=== PATIENT | male | born 1945 | race African-American/Black ===

== ENCOUNTER 2018-09-13 12:00 | Day surgery (SDC) | payer BC ==
[~2018-09-13] VITALS: Ht 182.9 cm; Wt 137.7 kg
--- NOTE | 2018-09-13 13:34 | PREAC ---
Date/Time of Note Date/Time of Note DATE: 09/13/18 TIME: 13:33 Anesthesia Eval and Record Evaluation Time Pre-Procedure Interview DATE: 09/13/18 TIME: 13:33 Age 72 Sex male NPO: 8 hrs Preoperative diagnosis screening Planned procedure colonoscopy Past Medical History Past Medical History: Includes Cardio: HTN Renal: BPH GI: Obesity Surgery & Anesthesia Issues No known issue Meds Anticoagulation: No Beta [place] within 24 hr: No Reason Beta [place] not given: Pt. not on B-[place] Meds reviewed: Yes Allergies Allergies Reviewed: Yes Labs/Studies Labs Reviewed: Reviewed by anesthesiologist test: N/A Pre-procedure Exam Airway: Adequate mouth opening, Adequate thyromental dist Mallampati: Mallampati IV Teeth: Normal Lung: Normal Heart: Normal ASA Physical Status ASA physical status: 2 Emergency: None Pre-operative Attestations Prior to commencing anesthesia and surgery, the patient was re-evaluated, there was verification of: *The patient's identity *The results of appropriate recent lab work and preoperative vital signs *The above evaluation not changing prior to induction *Anesthetic plan, risk benefits, alternative and complications discussed with patient/family; questions answered; patient/family understands, accepts and wishes to proceed. DIETER VALENZUELA DO Sep 13, 2018 13:34
[2018-09-13] MEDS ORDERED: PROPOFOL 20 ML ONE (13:35)
[2018-09-13] MEDS ORDERED: FENTAnyl 50 MCG/ML VIAL ONE (13:35)
[2018-09-13] MEDS ORDERED: LIDOCAINE 2% (SDV) 5 ML INJ ONE (13:35)
[2018-09-13] MEDS ORDERED: MIDAZOLAM 1 MG/ML 2 ML INJ ONE (13:35)
[2018-09-13] MEDS ORDERED: COREG (13:37)
[2018-09-13] MEDS ORDERED: LISINOPRIL (13:37)
[2018-09-13] MEDS ORDERED: TAMSULOSIN (13:37)
[2018-09-13] MEDS ORDERED: ASPIRIN (13:37)
[2018-09-13 13:41] VITALS: BP 141/84; PULSE 85; RESP 12
--- NOTE | 2018-09-13 14:26 | PAC ---
Date/Time of Note Date/Time of Note DATE: 09/13/18 TIME: 14:25 Post-Anesthesia Notes Post-Anesthesia Note Last documented vital signs 113/59 80 22 98 100% Activity: WNL Respiratory function: WNL Cardiovascular function: WNL Mental status: Baseline Pain reasonably controlled: Yes Hydration appropriate: Yes Nausea/Vomiting absent: Yes DIETER VALENZUELA DO Sep 13, 2018 14:26
[2018-09-13 14:49] VITALS: BP 140/72; PULSE 79; RESP 18
== END 2018-09-13 15:07 | disposition home or self-care (01) ==
LOC: GIL 12:00
PROVIDERS: ATTEND Internal Medicine Gastroenterology
DX: R19.4 Change in bowel habit (principal); D12.6 Benign neoplasm of colon, unspecified; K57.30 Diverticulosis of large intestine without perforation or abscess without bleeding; K64.8 Other hemorrhoids; I10 Essential (primary) hypertension
CPT/HCPCS: 45380; 88305; J2250; J3010